=== PATIENT | female | born 1950 | race Caucasian/White ===

== ENCOUNTER → 2020-01-26 | Emergency (ER) | payer MEDICARE ==
[~2020-01-26] VITALS: Ht 157.4 cm; Wt 55.8 kg
[2020-01-26 09:22] LABS: BASO % 0.3 % (0.0-1.0); EOS # 0.1 10*3/uL (0.0-0.4); EOS % 0.3 % (1.0-4.0); HEMATOCRIT 32.4 % (37.0-47.0); LYMPH # 1.3 10*3/uL (1.3-4.4); LYMPH % 8.3 % (27.0-41.0); MEAN CELL VOLUME 103.5 fl (81.0-99.0); MEAN CORPUSCULAR HGB 32.9 pg (27.0-31.0); MEAN CORPUSCULAR HGB CONC 31.8 g/dl (33.0-37.0); MEAN PLATELET VOLUME 9.7 fl (9.6-12.3); MONO # 0.6 10*3/uL (0.1-1.0); MONO % 3.9 % (3.0-9.0); NEUT # 13.6 10*3/uL (2.3-7.9); NEUT % 86.6 % (47.0-73.0); PLATELET COUNT AUTOMATED 171 10*3/uL (130-400); RED BLOOD COUNT 3.13 10*6/uL (4.10-5.10); RED CELL DISTRI WIDTH 13.2 % (0-14.5); WHITE BLOOD COUNT 15.7 10*3/uL (4.8-10.8)
[2020-01-26 09:37] LABS: CREATININE 1.36 mg/dL (0.55-1.02); TOTAL PROTEIN 6.1 gm/dL (6.4-8.2)
[2020-01-26 10:14] LABS: TROPONIN I < 0.015 ng/ml (<0.045)
[2020-01-26 10:26] LABS: ACT PARTIAL THROMBO TIME 23.3 SECONDS (20.0-32.1)
== END ==
LOC: ED 08:53
PROVIDERS: Emergency Medicine
DX: I71.2 Thoracic aortic aneurysm, without rupture (principal); J90 Pleural effusion, not elsewhere classified; R79.1 Abnormal coagulation profile; I10 Essential (primary) hypertension; J44.9 Chronic obstructive pulmonary disease, unspecified; F17.200 Nicotine dependence, unspecified, uncomplicated